=== PATIENT | male | born 1990 | race Caucasian/White ===

== ENCOUNTER 2024-04-24 02:53 | Emergency (ER) | payer BC ==
[2024-04-24] MEDS: predniSONE 20 MG Tab PO ONE (03:28)
[2024-04-24] MEDS: Ketorolac 60 MG/2 ML SDV IM ONE (03:28)
[2024-04-24 03:29] LABS: BASOPHILS ABSOLUTE AUTO 0.1 K/mm3 (0.0-0.2); BASOPHILS PERCENT AUTO 0.6 % (0.0-1.0); EOSINOPHILS ABSOLUTE AUTO 0.2 K/mm3 (0.0-0.4); EOSINOPHILS PERCENT AUTO 2.8 % (0.0-6.0); HEMATOCRIT 40.7 % (42.0-52.0); IMMATURE GRAN ABSOLUTE AUTO 0.03 K/mm3 (0.00-0.05); IMMATURE GRAN PERCENT AUTO 0.4 % (0.0-0.4); LYMPHOCYTES ABSOLUTE AUTO 1.6 K/mm3 (1.0-4.8); LYMPHOCYTES PERCENT AUTO 19.4 % (24.0-44.0); MEAN CORPUSCULAR HEMOGLOBIN 31.8 pg (28.0-32.0); MEAN CORPUSCULAR HGB CONC 34.4 g/dl (32.0-36.0); MEAN CORPUSCULAR VOLUME 92.5 fl (83.0-99.0); MEAN PLATELET VOLUME 9.6 fl (9.4-12.4); MONOCYTES ABSOLUTE AUTO 0.8 K/mm3 (0.0-0.8); NEUTROPHILS ABSOLUTE AUTO 5.5 K/mm3 (1.8-7.7); NEUTROPHILS PERCENT AUTO 66.8 % (41.0-71.0); PLATELET COUNT,PLT 248 K/mm3 (150-400); WHITE BLOOD CELL COUNT,WBC 8.26 K/mm3 (3.9-11.3)
[2024-04-24 03:50] LABS: A/G RATIO 1.1 (1-2); ALBUMIN 3.7 g/dl (3.4-5.0); ANION GAP 10.3 (5-15); BILIRUBIN TOTAL 0.8 mg/dL (0.2-1.0); BUN/CREATININE RATIO 13.6 (14-18); C-REACTIVE PROTEIN 1.46 mg/dL (<0.30); CALCIUM 9.1 mg/dL (8.5-10.1); CREATININE 1.1 mg/dL (0.7-1.3); EST CRCL DRUG DOSING (CG) 90.14 mL/min; POTASSIUM,K 4.3 mEq/L (3.5-5.1); URIC ACID 6.6 mg/dL (3.5-7.2)
== END 2024-04-24 05:05 | disposition home or self-care (01) ==
LOC: JD.ED 02:53
DX: M79.671 Pain in right foot (principal); Z79.52 Long term (current) use of systemic steroids
CPT/HCPCS: 36415; 80053; 84550; 85025; 85652; 86140; 96372; 99283; J1885; J7512